=== PATIENT | female | born 1940 | race Caucasian/White ===

== ENCOUNTER 2021-08-21 01:55 | Inpatient (IN) ==
[2021-08-21] MEDS ORDERED: FUROSEMIDE 40 MG/4 ML VIAL IV STA (02:15)
[2021-08-21] MEDS ORDERED: NITROGLYCERIN SL 0.4 MG/TAB TAB SL STA (02:15)
--- NOTE | 2021-08-21 02:42 | Emergency Department Note ---
History of Present Illness General Chief Complaint: Shortness of Breath/Dyspnea Stated Complaint: SHORT OF BREATH/PRODUCTIVE COUGH Time Seen by Provider: 08/21/21 01:57 Source: patient and RN notes reviewed Mode of arrival: EMS Limitations: no limitations History of Present Illness Provider Complaint: shortness of breath (All of a sudden while at work tonight.) Onset (ago): hour(s) (1) Severity: severe Consistency/Duration: + constant Relieved By: + nothing Context: + recent illness (Cough recently, neg COVID test) Known history of: other (None) Associated symptoms: + cough (Productive of blood tinged sputum); no chest pain or no fever Treatment prior to arrival: bronchodilator HPI Narrative: goes to work at 10 pm for [employer] Sudden onset increased WOB, cough Blood tinged frothy no chest pain or fever no vomiting, diarrhea. Unsure of h/o murmur, no previous CHF. non smoker. Recent negative COVID swab. Related Data Home oxygen amount: none Home Medications Medication Instructions Recorded Confirmed Type furosemide 40 mg tablet 40 mg PO DAILY PRN 08/21/21 08/21/21 History multivitamin 1 tab PO DAILY 08/21/21 08/21/21 History tramadol 50 mg tablet 50 mg PO DIRECTED PRN 08/21/21 08/21/21 History Allergies Allergy/AdvReac Type Severity Reaction Status Date / Time No Known Allergies Allergy Verified 08/21/21 02:16 Past Med/Surg History Medical History (Updated 08/21/21 @ 04:26 by Samantha Hardy MD) Patient denies medical problems Social History (Updated 08/21/21 @ 04:07 by Samantha Hardy MD) Smoking Status: Never smoker Preferred Language: Azeri Feels Safe at Home: Yes Review of Systems See HPI for pertinent positives & negatives. and A total of 10 systems reviewed and were otherwise negative Physical Exam Vital Signs: Vital Signs - 24 hr 08/21/21 02:01 08/21/21 02:38 08/21/21 03:00 Temperature 36.9 C Temperature Source Oral Pulse Rate 125 H 116 H Pulse Rate [Apical ] 125 H 109 H Pulse Rate [Recove ry] Pulse Rhythm [Apic al] Regular Pulse Strength [Ap ical] Normal Respiratory Rate 20 30 H 22 Respiratory Rate [ Recovery] Respiratory Effort / Characteristics Non-Labored Non-Labored Sponta neous Respiratory Depth Normal Normal Respiratory Patter n Regular Blood Pressure 157/97 H Blood Pressure [Ri ght Arm] 157/97 H 122/72 Blood Pressure Rose n 117 Blood Pressure Rose n [Right Arm] 117 88 Blood Pressure Pos ition [Right Arm] Sitting Pulse Oximetry 91 94 94 Pulse Oximetry [Re covery] Oxygen Delivery Me thod Nasal Cannula Nasal Cannula Nasal Cannula Oxygen Flow Rate 4 4 4 Sepsis Recent Feve r Within 48 Hours No Sepsis New/Unexpla ined Change in Men juan luis Status N/A Sepsis Action Take n by Nursing No Action Required Oxygen Flow Rate - Titration 4 Pulse Oximetry Pos t Tiitration 91 08/21/21 03:38 08/21/21 03:39 Temperature Temperature Source Pulse Rate Pulse Rate [Apical ] Pulse Rate [Recove ry] 129 H Pulse Rhythm [Apic al] Pulse Strength [Ap ical] Respiratory Rate 24 Respiratory Rate [ Recovery] 27 H Respiratory Effort / Characteristics Non-Labored Sponta neous Respiratory Depth Normal Respiratory Patter n Blood Pressure Blood Pressure [Ri ght Arm] Blood Pressure Rose n Blood Pressure Rose n [Right Arm] Blood Pressure Pos ition [Right Arm] Pulse Oximetry 97 Pulse Oximetry [Re covery] 86 L Oxygen Delivery Me thod Room Air Nasal Cannula Oxygen Flow Rate 4 Sepsis Recent Feve r Within 48 Hours Sepsis New/Unexpla ined Change in Men juan luis Status Sepsis Action Take n by Nursing Oxygen Flow Rate - Titration Pulse Oximetry Pos t Tiitration Physical Exam: Vital signs reviewed. General: Somewhat ill-appearing 80 yo female, in no significant distress. HEENT: No scleral icterus, PERRLA, neck supple. Atraumatic. Cardiovascular: Systolic ejection murmur, tachycardic, regular rhythm Pulmonary: Increased WOB, rhonchi bilaterally, moist cough. Abdomen: Soft, nontender, nondistended, positive bowel sounds. Musculoskeletal: Atraumatic, no peripheral edema. Neurologic: Patient awake alert and oriented x 3 Skin: Warm, dry, no rash Course Administered Medications Discontinued Medications Aspirin (Aspirin Chew 324 Mg) 324 mg PO NOW STA Stop: 08/21/21 03:15 Last Admin: 08/21/21 03:22 Dose: 324 mg Documented by: [id number] Furosemide (Furosemide 40 Mg/4 Ml Vial) 40 mg IV NOW STA Stop: 08/21/21 02:16 Last Admin: 08/21/21 02:18 Dose: 40 mg Documented by: [id number] Nitroglycerin (Nitroglycerin Sl 0.4 Mg/Tab Tab) 0.4 mg SL NOW STA Stop: 08/21/21 02:16 Last Admin: 08/21/21 02:18 Dose: 0.4 mg Documented by: [id number] Potassium Chloride (Potassium Chloride Crtab 20 Meq Tabcr) 40 meq PO NOW STA Stop: 08/21/21 03:15 Last Admin: 08/21/21 03:22 Dose: 40 meq Documented by: [id number] Medical Decision Making Differential Diagnosis Reactive airway disease, pneumonia, pneumothorax, COPD, CHF, infections, cardiac ischemia, pulmonary embolism, musculoskeletal, gastrointestinal, as well as other pathologies. Medical Records Attestation: I reviewed the patient's medical records. Home Medications Current Medication List: was personally reviewed by me Laboratory Data Attestation: I reviewed the patient's lab results. Result diagrams: 08/21/21 02:40 08/21/21 02:40 Lab Results 08/21/21 08/21/21 08/21/21 Range/Units 02:28 02:40 02:40 WBC 8.85 (4.8-10.8) K/uL RBC 4.39 (4.2-5.4) M/uL Hgb 13.6 (12.0-16.0) g/dL Hct 41.8 (37-47) % MCV 95.2 (80-100) fL MCH 31.0 (25-34) pg MCHC 32.5 (32-36) g/dL RDW Std Deviation 48.2 H (36.4-46.3) fL RDW Coeff of Grace 13.9 (11.5-14.5) % Plt Count 249 (130-400) K/uL MPV 10.2 (7.4-10.4) fL Immature Gran % (Auto) 0.3 % Neut % (Auto) 61.9 % Lymph % (Auto) 24.1 % [place] % (Auto) 10.1 % Eos % (Auto) 3.3 % Baso % (Auto) 0.3 % Neut # (Auto) 5.48 (1.4-6.5) K/uL Lymph # (Auto) 2.13 (1.2-3.4) K/uL [place] # (Auto) 0.89 H (0.11-0.59) K/uL Eos # (Auto) 0.29 (0-0.5) K/uL Baso # (Auto) 0.03 (0-0.2) K/uL Immature Gran # (Auto) 0.03 H (0.00-0.02) K/uL Sodium 143 (136-145) mmol/L Potassium 3.3 L (3.5-5.1) mmol/L Chloride 109 H (98-107) mmol/L Carbon Dioxide 26 (21-32) mmol/L Anion Gap 8 (3-11) BUN 22 (6-23) mg/dl Creatinine 0.75 (0.6-1.2) mg/dl Est Cr Clr Drug Dosing 50.1 ml/min Est GFR ( Amer) 87.9 ml/min Est GFR (Non-Af Amer) 75.8 ml/min BUN/Creatinine Ratio 29.3 H (10-20) Glucose 115 H (70-99(Fasting)) mg/dl Calcium 9.8 (8.5-10.1) mg/dl Magnesium 2.0 (1.7-2.4) mg/dl Total Bilirubin 0.4 (0.2-1.0) mg/dl AST 24 (13-39) U/L ALT 18 (7-52) U/L Alkaline Phosphatase 108 H (34-104) U/L Troponin I 0.19 H* (0-0.04) ng/ml B-Natriuretic Peptide (0-100) pg/ml Total Protein 6.4 (6.0-8.3) gm/dl Albumin 3.8 (3.4-5.0) gm/dl Globulin 2.6 (2.5-4.0) gm/dl Albumin/Globulin Ratio 1.5 (0.9-2) Urine Color Urine Appearance (Clear) Urine pH (4.5-7.5) Ur Specific [place] (1.000-1.030) Urine Protein (Negative) Urine Glucose (UA) (Negative) Urine Ketones (Negative) Urine Blood (Negative) Urine Nitrite (Negative) Urine Bilirubin (Negative) Urine Urobilinogen (Negative) Ur Leukocyte Esterase (Negative) Urine WBC (Auto) (0-5) /hpf Urine RBC (Auto) (0-4) /hpf U Hyaline Cast (Auto) (0-5) /lpf U Epithel Cells (Auto) (0-5) /lpf Urine Bacteria (Auto) (Negative) SARS-CoV-2, RNA, NAAT NEGATIVE (NEGATIVE) 08/21/21 08/21/21 Range/Units 03:25 03:30 WBC (4.8-10.8) K/uL RBC (4.2-5.4) M/uL Hgb (12.0-16.0) g/dL Hct (37-47) % MCV (80-100) fL MCH (25-34) pg MCHC (32-36) g/dL RDW Std Deviation (36.4-46.3) fL RDW Coeff of Grace (11.5-14.5) % Plt Count (130-400) K/uL MPV (7.4-10.4) fL Immature Gran % (Auto) % Neut % (Auto) % Lymph % (Auto) % [place] % (Auto) % Eos % (Auto) % Baso % (Auto) % Neut # (Auto) (1.4-6.5) K/uL Lymph # (Auto) (1.2-3.4) K/uL [place] # (Auto) (0.11-0.59) K/uL Eos # (Auto) (0-0.5) K/uL Baso # (Auto) (0-0.2) K/uL Immature Gran # (Auto) (0.00-0.02) K/uL Sodium (136-145) mmol/L Potassium (3.5-5.1) mmol/L Chloride (98-107) mmol/L Carbon Dioxide (21-32) mmol/L Anion Gap (3-11) BUN (6-23) mg/dl Creatinine (0.6-1.2) mg/dl Est Cr Clr Drug Dosing ml/min Est GFR ( Amer) ml/min Est GFR (Non-Af Amer) ml/min BUN/Creatinine Ratio (10-20) Glucose (70-99(Fasting)) mg/dl Calcium (8.5-10.1) mg/dl Magnesium (1.7-2.4) mg/dl Total Bilirubin (0.2-1.0) mg/dl AST (13-39) U/L ALT (7-52) U/L Alkaline Phosphatase (34-104) U/L Troponin I (0-0.04) ng/ml B-Natriuretic Peptide 175 H (0-100) pg/ml Total Protein (6.0-8.3) gm/dl Albumin (3.4-5.0) gm/dl Globulin (2.5-4.0) gm/dl Albumin/Globulin Ratio (0.9-2) Urine Color Yellow Urine Appearance Clear (Clear) Urine pH 5.0 (4.5-7.5) Ur Specific [place] 1.006 (1.000-1.030) Urine Protein Negative (Negative) Urine Glucose (UA) Negative (Negative) Urine Ketones Negative (Negative) Urine Blood Negative (Negative) Urine Nitrite Negative (Negative) Urine Bilirubin Negative (Negative) Urine Urobilinogen Negative (Negative) Ur Leukocyte Esterase Trace H (Negative) Urine WBC (Auto) 1-5 (0-5) /hpf Urine RBC (Auto) 0-4 (0-4) /hpf U Hyaline Cast (Auto) 1-5 (0-5) /lpf U Epithel Cells (Auto) 0-5 (0-5) /lpf Urine Bacteria (Auto) Negative (Negative) SARS-CoV-2, RNA, NAAT (NEGATIVE) Imaging Data My Impression: CXR to my interpretation reveals pulm vascular congestion. Blood Pressure Blood Pressure Findings: Elevated blood pressure Blood Pressure Disposition: further management by hospitalist MDM Narrative This pt was evaluated and appeared to be in some resp discomfort. IV access was obtained and lab work was drawn. EKG reveals a sinus tachycardia without evidence of acute ischemic change. Chest x-ray reveals evidence of congestive heart failure. Laboratory work is consistent with a mildly elevated troponin at 0.19. Patient was medicated with 40 mg of IV Lasix and 325 mg of oral aspirin. She did have significant relief of her discomfort. Patient did remain slightly tachycardic, but much improved. I suspect she is having an acute exacerbation of congestive heart failure. Patient was informed of the findings. She has swabbed Covid negative. Dr. Willis of the hospitalist service has been consulted for further management. Patient is aware of the change and agrees. Impression & Plan Congestive heart failure, Systolic ejection murmur, Elevated troponin Discharge Plan Visit Data Chief Complaint: Shortness of Breath/Dyspnea Stated Complaint: SHORT OF BREATH/PRODUCTIVE COUGH ED Provider: Samantha Hardy Discharge Problem: Congestive heart failure, Systolic ejection murmur, Elevated troponin Forms Stand Alone Forms: [facility] [employer] Prescriptions Prescriptions: No Action multivitamin Tablet 1 tab PO DAILY RF: 0 furosemide 40 mg tablet 40 mg PO DAILY PRN (Reason: Edema) RF: 0 tramadol 50 mg Tablet 50 mg PO DIRECTED PRN (Reason: Pain) RF: 0 Referrals Referrals: PCP,NO [Primary Care Provider] - Discharge Problem: Congestive heart failure Qualifiers: Heart failure type: unspecified Heart failure chronicity: acute Qualified Code(s): I50.9 - Heart failure, unspecified
[2021-08-21 02:48] LABS: Basophils # (auto) 0.03 K/uL (0-0.2); Basophils % (auto) 0.3 %; Eosinophils # (auto) 0.29 K/uL (0-0.5); Eosinophils % (auto) 3.3 %; Hematocrit (blood only) 41.8 % (37-47); Hemoglobin 13.6 g/dL (12.0-16.0); Immature Granulocytes # (auto) 0.03 K/uL (0.00-0.02); Immature Granulocytes % (auto) 0.3 %; Lymphocytes # (auto) 2.13 K/uL (1.2-3.4); Lymphocytes % (auto) 24.1 %; Mean Corpuscular Hgb Conc 32.5 g/dL (32-36); Mean Corpuscular Volume 95.2 fL (80-100); Mean Platelet Volume 10.2 fL (7.4-10.4); Monocytes # (auto) 0.89 K/uL (0.11-0.59); Monocytes % (auto) 10.1 %; Neutrophils # (auto) 5.48 K/uL (1.4-6.5); Neutrophils % (auto) 61.9 %; Platelet Count 249 K/uL (130-400); RDW Coefficient of Variation 13.9 % (11.5-14.5); RDW Standard Deviation 48.2 fL (36.4-46.3); Red Blood Count 4.39 M/uL (4.2-5.4); White Blood Count 8.85 K/uL (4.8-10.8)
[2021-08-21 03:12] LABS: Albumin Globulin Ratio 1.5 (0.9-2); Albumin Level 3.8 gm/dl (3.4-5.0); BUN Creatinine Ratio 29.3 (10-20); Bilirubin,Total 0.4 mg/dl (0.2-1.0); Calcium 9.8 mg/dl (8.5-10.1); Creatinine Clr Calc Pharmacy 50.1 ml/min; Est GFR (African American) 87.9 ml/min; Est GFR (Non-African American) 75.8 ml/min; Globulin 2.6 gm/dl (2.5-4.0); Potassium 3.3 mmol/L (3.5-5.1); Total Protein 6.4 gm/dl (6.0-8.3)
[2021-08-21 03:13] LABS: Troponin I 0.19 ng/ml (0-0.04)
[2021-08-21] MEDS ORDERED: POTASSIUM CHLORIDE CRTAB 20 MEQ TABCR PO STA (03:14)
[2021-08-21] MEDS ORDERED: ASPIRIN CHEW 324 MG PO STA (03:14)
[2021-08-21 03:55] LABS: Appearance Urine Clear (Clear); Bacteria Urine Automated Negative (Negative); Bilirubin Urine Negative (Negative); Blood Urine Negative (Negative); Color Urine Yellow; Epithelial Cell Urine Auto 0-5 /lpf (0-5); Glucose Urine UA Negative (Negative); Ketones Urine Negative (Negative); Leukocyte Esterase Urine Trace (Negative); Nitrite Urine Negative (Negative); Protein Urine Negative (Negative); RBC Urine Automated 0-4 /hpf (0-4); Specific Gravity Urine 1.006 (1.000-1.030); Urobilinogen Urine Negative (Negative)
--- NOTE | 2021-08-21 04:00 | History & Physical Report ---
Date of Service August 21, 2021 Assessment & Plan (1) Shortness of breath: Plan: 80yo female with a history of back pain and headache (with frequent NSAID use) presents after sudden-onset SOB, cough productive of blood-tinged sputum, and chest tightness. Sudden-onset SOB, hypoxia, cough, minimal hemoptysis Patient with the above symptoms which occurred suddenly while at work Upon EMS evaluation and arrival to the ED, patient noted to be hypertensive, tachycardic (max 130's), tachypneic (max 30), and hypoxia to mid-80's Hypoxia resolved in the field on 4L NC; continue supplemental oxygen to maintain O2 sat >92%, wean as tolerated Afebrile, no leukocytosis, no anemia D-dimer elevated to 1110 Stat CTA chest w/ PE protocol pending Heparin gtt NSTEMI Troponin on admission 0.19, likely represents demand ischemia secondary to hypoxemia EKG: sinus tachycardia without ischemic change; if chest pain, repeat EKG Trend troponin q6h until downtrending Echo as above Lipid profile, A1c ordered Systolic ejection murmur Unclear if this has been previously-diagnosed Echo ordered Caution with additional diuresis - murmur suspicious for which would be pre-load dependent History of fluid overload Patient takes lasix about once weekly for "fluid overload" - unclear if patient has been diagnosed with CHF in the past BNP mildly elevated (to 175) on admission CXR with some pulmonary edema and trace pleural effusions Patient likely has some degree of systolic and/or diastolic failure; will obtain echo as above Caution with diuresis as above Hypokalemia Potassium 3.3 on admission; KCl PO 20mEq bid ordered Trend BMP, replete as needed FEN: heart healthy diet Code status: DNR/DNI per my discussion with patient on admission DVT ppx: heparin gtt Held home meds: lasix Dispo: PCU telemetry for close hemodynamic monitoring (2) Elevated troponin: (3) Systolic ejection murmur: (4) Congestive heart failure: Plan: 80yo female with a history of back pain and headache (with frequent NSAID use) presents after sudden-onset SOB, cough productive of blood-tinged sputum, and chest tightness. Sudden-onset SOB, hypoxia, cough, minimal hemoptysis Patient with the above symptoms which occurred suddenly while at work Upon EMS evaluation and arrival to the ED, patient noted to be hypertensive, tachycardic (max 130's), tachypneic (max 30), and hypoxia to mid-80's Hypoxia resolved in the field on 4L NC; continue supplemental oxygen to maintain O2 sat >92%, wean as tolerated Afebrile, no leukocytosis, no anemia D-dimer elevated to 1110 Stat CTA chest w/ PE protocol pending Heparin gtt NSTEMI Troponin on admission 0.19, likely represents demand ischemia secondary to hypoxemia EKG: sinus tachycardia without ischemic change Trend troponin q6h until downtrending EKG with CP Lipid profile, A1c ordered Systolic ejection murmur Unclear if this has been previously-diagnosed Echo ordered Caution with additional diuresis - murmur suspicious for which would be pre-load dependent Hypokalemia Potassium 3.3 on admission; KCl PO 20mEq bid ordered Trend BMP, replete as needed FEN: heart healthy diet Code status: DNR/DNI per my discussion with patient on admission DVT ppx: heparin gtt Held home meds: lasix Dispo: PCU telemetry for close hemodynamic monitoring History of Present Illness Primary Care Provider: Dr. Emilee Washington ([facility]) 80yo female with a history of headache and back pain presents with sudden-onset SOB, cough productive of blood-tinged sputum, and chest tightness. 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 Patient waited 10- 15 minutes for symptoms to resolve, but when her symptoms started to gradually worsened, she called a family friend (who is a physician) who recommended calling 911. Patient notes about 40 minutes elapsed between symptom onset and EMS arrival. Patient notes her symptoms continued to worsen until EMS gave her a nebulizer and supplemental oxygen. Upon EMS evaluation, patient was tachycardic, tachypneic, and hypoxic in the 80s, which improved on 4L NC. Upon arrival to the ED, patient was hypoxic to 87, tachycardic to 125, and was afebrile. Respiratory rate on arrival is listed as 20 but patient has had tachypnea reaching a RR of 30 intermittently while here. Patient denies experiencing similar symptoms before. Does endorse a lifetime history of easy bruising, though she denies a history of uncontrolled nosebleeds, hematochezia, or melena. Also endorses a history of headache and frequent NSAID use ("I always have a headache, it is constant every day, I take a lot of excedrin and aleve, usually multiple times a day"). Patient denies fever, chills, fatigue, congestion, sore throat, chest pain, palpitations, abdominal pain, nausea, vomiting, constipation, diarrhea, pain with urination, change in urinary frequency, hematuria, new numbness, tingling, weakness, night sweats, rash, bone pain, or unintentional weight loss. Patient is a never- smoker. Patient denies recent travel, recent immobility, or history of TB. Patient denies a known family history of DVT/PE, hemoptysis, aneurysms, uncontrolled nosebleeds, or GI bleed. Other than OTC headache medicine, patient's home meds are limited to tramadol and lasix; tramadol as needed for back pain (s/p back surgery five years ago), and lasix as needed for "fluid retention" though she denies having been diagnosed with CHF; patient reports she only takes lasix about once a week. Patient is unaware if she's been diagnosed with a heart murmur in the past. 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 Required: No marital status: Feels Safe at Home: Yes Safety Concerns: Feels Safe At This Time Assistive Devices: None Review of Systems Review of Systems: See HPI Physical Exam Physical Exam: Constitutional: well-appearing, no acute distress HEENT: NCAT, no blood appreciated in nares or oropharynx, MMM, no oropharyngeal ulcers or telangiectasias CV: tachycardic, regular rhythm, grade 5/6 systolic ejection murmur appreciated, extremities well-perfused, no LE edema Resp: CTABL, no wheezes/rales/rhonchi appreciated, no increased work of breathing GI: soft, nondistended, nontender, BS normoactive MSK: no gross deformities appreciated Skin: warm, dry, no rash appreciated Neuro: alert, oriented, no focal neurologic deficit appreciated Results & Data Results & Data ([facility]) Vital Signs (Past 12 Hours) Vital Signs Temp Pulse Pulse Pulse Resp Resp BP 08/21/21 03:39 24 08/21/21 03:38 129 H 27 H 08/21/21 03:00 109 H 22 08/21/21 02:38 116 H 30 H 08/21/21 02:01 36.9 C 125 H 125 H 20 157/97 H BP Pulse Ox Pulse Ox 08/21/21 03:39 97 08/21/21 03:38 86 L 08/21/21 03:00 122/72 94 08/21/21 02:38 94 08/21/21 02:01 157/97 H 91 Supervising Physician Co-Signing Physician Notes Attending addendum: I have physically seen this patient, have supervised the medical residents activities, and agree with the H&P unless as otherwise noted. Assessment and Plan: NSTEMI/systolic heart murmur/elevated troponin- The patient will be admitted to telemetry for serial cardiac enzymes, serial EKG's, cardiac rhythm monitoring and a 2-D echocardiogram with Dopplers. Troponin 0.19 upon admission, with differential including type II VT plus minus associated with possible PE versus primary cardiac event Check a vascular panel hemoglobin A1c D-dimer elevated. Stat CTA chest PE protocol ordered Heparin drip as noted Consult cardiology Remaining orders and notations as noted Resident Activity Tracking Resident Involvement: Resident Care Provided and Learning Coordinator Coverage Note Care Provided: Adult Hospital Medicine (1) Congestive heart failure Heart failure chronicity: acute Heart failure type: unspecified Qualified Code(s): I50.9 - Heart failure, unspecified
[2021-08-21 06:02] LABS: D Dimer 1110 ug/L FEU (0-500)
[2021-08-21] MEDS ORDERED: Heparin IV Adult Wt-Based Standard WITH Bolus Protocol IV SCH (06:23)
[2021-08-21] MEDS ORDERED: OPTIRAY 320 125ml IV ONE (06:28)
[2021-08-21] MEDS ORDERED: HEPARIN SOD (PORCINE) 1000 UNIT/ML IV ONE (06:33)
[2021-08-21] MEDS ORDERED: HEPARIN SODIUM/DEXTROSE 25,000 UNITS/500 ML BAG IV SCH (06:45)
--- NOTE | 2021-08-21 06:47 | XRay Report ---
XR chest 1V portable HISTORY: 80 years-old Female Dyspnea acute shortness of breath COMPARISON: CTA chest of same day TECHNIQUE: Portable AP view of the chest FINDINGS: Cardiac silhouette is enlarged. Calcified plaque of the thoracic aorta. Pulmonary vascular congestion with interstitial coarsening and ill-defined bilateral airspace opacities. Trace pleural effusions. Cholecystectomy. Degenerative changes of the shoulders and spine. IMPRESSION: 1. Cardiomegaly with pulmonary edema. 2. Trace pleural effusions with bibasilar prominent opacities suggestive of atelectasis. ACT 112: Negative or not required by law. The above report was generated using voice recognition software. It may contain grammatical, syntax o r spelling errors. Electronically signed by: Octavio Sweeney M.D. 08/21/2021 6:46 AM
--- NOTE | 2021-08-21 07:36 | CT Scan Report ---
CT ANGIOGRAM OF THE CHEST CLINICAL HISTORY: Cough and dyspnea. Wheezing. COMPARISON STUDY: Chest x-ray dated 08/21/2021. TECHNIQUE: Following the IV administration of 121 cc of Optiray 320, CT angiogram of the chest was pe rformed from the upper abdomen to the thoracic inlet utilizing the pulmonary embolus protocol. Images are reviewed in the axial, sagittal, and coronal planes. 3-D MIPS images are created and assessed. I V contrast was administered without complication. A dose lowering technique was utilized adhering to the principles of ALARA. CT DOSE: 291.38 mGy.cm FINDINGS: Thyroid: Imaged portions of the thyroid gland are normal in size and attenuation. Thoracic aorta: There is atherosclerotic calcification of the thoracic aorta, which is normal in sadie dotty and demonstrates standard 3-vessel arch anatomy. The thoracic aorta is not well opacified. Pulmonary vasculature: The pulmonary trunk is dilated, measuring 3.7 cm in diameter. There are no aden ling defects identified in main, lobar, or segmental pulmonary branches to suggest pulmonary embolus. Heart: The heart is enlarged and without pericardial effusion. Lungs and pleural spaces: There are small pleural effusions. There is diffuse intralobular septal thi ckening. Groundglass change is noted throughout both lungs. The trachea and central airways are clear . Mediastinum: There is no mediastinal lymphadenopathy. Marika: Mildly enlarged hilar nodes measure up to 13 mm in short axis. Axillae: There is no axillary lymphadenopathy. Upper abdomen: Partially visualized upper abdominal viscera is within normal limits. Skeletal structures: The skeletal structures are osteopenic. Degenerative changes noted in the thorac ic spine. Arthritic change is seen in the shoulders. No lytic or blastic bony lesions are seen. IMPRESSION: 1. There is no evidence of pulmonary embolus in the main, lobar, or segmental pulmonary arteries. 2. Cardiomegaly with evidence of pulmonary artery hypertension and congestive failure. 3. Diffuse groundglass change likely represents pulmonary edema. Correlate clinically for evidence of a superimposed infectious/inflammatory pneumonitis. 4. Small pleural effusions. 5. Mildly enlarged hilar lymph nodes are nonspecific and likely reactive. ACT 112: Negative or not required by law. Electronically signed by: Azar Resendiz M.D. 08/21/2021 7:35 AM
[2021-08-21] MEDS ORDERED: ONDANSETRON INJ 2 MG/ML 2 ML VIAL IV PRN (07:41)
[2021-08-21] MEDS ORDERED: POLYETHYLENE (MIRALAX) 17 GM PACK PO PRN (07:41)
[2021-08-21] MEDS ORDERED: NITROGLYCERIN SL 0.4 MG/TAB TAB SL PRN (07:41)
[2021-08-21] MEDS: traMADol HCL 50 MG TABLET PO PRN ×2 (09:05→20:05)
[2021-08-21] MEDS: POTASSIUM CHLORIDE CRTAB 20 MEQ TABCR PO SCH ×2 (09:05→20:29)
[2021-08-21] MEDS: ASPIRIN 81 MG ECTAB PO SCH (09:05)
--- NOTE | 2021-08-21 10:39 | XCELERA ---
[id number]
--- NOTE | 2021-08-21 11:41 | Cardiology Consultation ---
Date of Consultation August 21, 2021 Assessment & Plan (1) Congestive heart failure: (2) Mitral regurgitation: (3) Elevated troponin: 1. Congestive heart failure: Based on symptoms her heart failure was of acute onset. There are at least 2 possibilities for this, one is that it is due to myocardial ischemia and the rising troponin would suggest that, another possibility is acute mitral regurgitation and she does have leaflet prolapse however this is only graded as mild to moderate so that is probably less likely. She may have diastolic heart failure and is on Lasix, but typically that would not present with sudden onset although perhaps the symptoms were sudden onset but not the failure. She does describe a cough for several weeks so this is a possibility. 2. Mitral regurgitation: She has mild to moderate mitral regurgitation due to prolapsed posterior leaflet. Although sudden onset of mitral regurgitation could cause acute congestive heart failure this seems less likely than myocardial ischemia. Her electrocardiogram does not show ischemic changes however. 3. Elevated troponin: She had a slightly elevated troponin on presentation and that has risen with her second measurement. This is worrisome and may represent ongoing myocardial injury although demand ischemia remains a possibility. 4. Coronary disease: I suspect she does have coronary disease based on her enzyme elevation and significant aortic calcification, to my knowledge she has not had evaluation for coronary disease in the past. Options include continuing to trend troponins and consider stress testing at a later date, versus catheterization to make the diagnosis. This would allow us to intervene early if she does have significant disease. I would favor this approach and I will review with Dr. Garcia. The patient is agreeable. 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 She was working when the symptoms started suddenly, on arrival to emergency room she was noted to be hypertensive and tachycardic as well as tachypneic and hypoxic. Initial evaluation showed a troponin of 0.19, her electrocardiogram on presentation shows sinus tachycardia at 123 bpm with no significant ST deviation, and her echocardiogram showed a hyperdynamic left ventricle with posterior leaflet prolapse and eccentric mitral regurgitation which is felt to be mild to moderate. Left atrial size is normal. I did repeat her electrocardiogram at the time of my evaluation in the emergency room and it was essentially unchanged other than being at a more controlled heart rate. I did discuss her symptoms with her and it sounds as though she had a bit of a prodrome in that she was having a cough for several weeks which she had called in about but was told to take [id number] medications. She has not been using her diuretic because she uses that for leg and arm swelling which she has not been having. 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 When specifically asked about chest discomfort she does describe a pressure sensation which she had since last evening and it continues at this time. She did not have lightheadedness or dizziness. She did note that her heart was beating very rapidly and was uncomfortable when she first noticed the shortness of breath Allergies Allergy/AdvReac Type Severity Reaction Status Date / Time No Known Allergies Allergy Verified 08/21/21 02:16 Home Medications Medication Instructions Recorded Confirmed Type furosemide 40 mg tablet 40 mg PO DAILY PRN 08/21/21 08/21/21 History multivitamin 1 tab PO DAILY 08/21/21 08/21/21 History tramadol 50 mg tablet 50 mg PO DIRECTED PRN 08/21/21 08/21/21 History Patient History Medical History Patient denies medical problems Social History Smoking Status: Unknown if ever smoked Preferred Language: Portuguese Communication Ability: Effective Eyelet Riveter Required: No marital status: Feels Safe at Home: Yes Safety Concerns: Feels Safe At This Time Assistive Devices: None Review of Systems Review of Systems: All systems reviewed & are unremarkable except as noted in HPI & below She does have some difficulty walking due to 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 She does not feel she could walk on a treadmill. Physical Exam Physical Exam: Constitutional: Alert, cooperative and in no distress. HEENT: Unremarkable Neck: No jugular venous distention, carotid pulses are normal and equal bilaterally without bruits. Pulmonary: Basilar crackles on auscultation bilaterally. Cardiac: Regular rhythm with a grade 2/6 holosystolic murmur at the apex, no gallop or rub. Abdomen: Soft, nontender with normal bowel sounds. Extremities: No edema. Distal pulses intact. Neurologic: No focal findings. Gait was not tested. Skin: No rash, ecchymoses or petechiae. Results & Data ([facility]) Vital Signs (Past 12 Hours) Vital Signs Temp Pulse Pulse Pulse Resp Resp BP 08/21/21 08:49 104 H 24 08/21/21 06:00 104 H 20 08/21/21 05:09 105 H 20 08/21/21 03:39 24 08/21/21 03:38 129 H 27 H 08/21/21 03:00 109 H 22 08/21/21 02:38 116 H 30 H 08/21/21 02:01 36.9 C 125 H 125 H 20 157/97 H BP Pulse Ox Pulse Ox 08/21/21 08:49 122/81 99 08/21/21 06:00 126/74 95 08/21/21 05:09 111/70 97 08/21/21 03:39 97 08/21/21 03:38 86 L 08/21/21 03:00 122/72 94 08/21/21 02:38 94 08/21/21 02:01 157/97 H 91 Laboratory Results Cardiac Enzymes 08/21/21 08/21/21 08/21/21 Range/Units 02:40 03:25 08:48 AST 24 (13-39) U/L Troponin I 0.19 H* 0.48 H* (0-0.04) ng/ml B-Natriuretic Peptide 175 H (0-100) pg/ml Coagulation 08/21/21 Range/Units 03:25 B-Natriuretic Peptide 175 H (0-100) pg/ml Lipids 08/21/21 Range/Units 02:40 Triglycerides 129 (0-150) mg/dl Cholesterol 196 (0-200) mg/dl HDL Cholesterol 49 mg/dl Cholesterol/HDL Ratio 4.0 (0-5) CBC 08/21/21 Range/Units 02:40 WBC 8.85 (4.8-10.8) K/uL RBC 4.39 (4.2-5.4) M/uL Hgb 13.6 (12.0-16.0) g/dL Hct 41.8 (37-47) % Plt Count 249 (130-400) K/uL Neut # (Auto) 5.48 (1.4-6.5) K/uL Lymph # (Auto) 2.13 (1.2-3.4) K/uL [place] # (Auto) 0.89 H (0.11-0.59) K/uL Eos # (Auto) 0.29 (0-0.5) K/uL Baso # (Auto) 0.03 (0-0.2) K/uL Comprehensive Metabolic Panel 08/21/21 Range/Units 02:40 Sodium 143 (136-145) mmol/L Potassium 3.3 L (3.5-5.1) mmol/L Chloride 109 H (98-107) mmol/L Carbon Dioxide 26 (21-32) mmol/L BUN 22 (6-23) mg/dl Creatinine 0.75 (0.6-1.2) mg/dl Glucose 115 H (70-99(Fasting)) mg/dl Calcium 9.8 (8.5-10.1) mg/dl AST 24 (13-39) U/L ALT 18 (7-52) U/L Alkaline Phosphatase 108 H (34-104) U/L Total Protein 6.4 (6.0-8.3) gm/dl Albumin 3.8 (3.4-5.0) gm/dl Intake and Output 08/20/21 08/21/21 08/21/21 22:59 06:59 14:59 Other: Weight 72.5 kg Diagnostic Findings I did review her chest x-ray and this appears to represent congestive heart failure. She also has aortic calcification which is obvious on chest x-ray. A CT angiogram was done which was negative for pulmonary emboli and also suggested pulmonary edema. PG Care Time/CCT Total # of Minutes Spent Total Time Spent with Patient: Total time spent is greater than 50% in coordination of care (as documented) at patient's floor/unit and/or counseling patient: Coding Level of Care Code 00301 Office/OBS Consult Lvl 5 Diagnoses Congestive heart failure I50.9 Heart failure chronicity: acute Heart failure type: unspecified Mitral regurgitation I34.0 Elevated troponin R77.8 (1) Congestive heart failure Heart failure chronicity: acute Heart failure type: unspecified Qualified Co de(s): I50.9 - Heart failure, unspecified
[2021-08-21] MEDS: FUROSEMIDE INJ 20 MG/2 ML VIAL IV SCH ×2 (12:30→20:29)
--- NOTE | 2021-08-21 12:53 | Medical Student Progress Note ---
Date of Service August 21, 2021 Assessment & Plan (1) Congestive heart failure: Plan: This 80-year-old woman with a history of back pain s/p surgery, headache, and skin cancer s/p surgery (2019) presented with sudden-onset dyspnea, chest tightness, hemoptysis, and palpitations with new systolic ejection murmur and TTE showing mitral valve prolapse. Sudden-onset dyspnea, chest tightness, hemoptysis, and palpitations: - Differential diagnosis includes cardiac causes (acute decompensated heart failure, acute mitral regurgitation, ACS) and pulmonary cause (pulmonary embolism, infectious) - Cardiac cause most likely * Acute decompensated heart failure * To patient's knowledge, she has no underlying existing heart failure. Acute onset possibly due to NSTEMI vs. sudden onset mitral regurgitation due to valve prolapse. * CTA chest demonstrates evidence of pulmonary artery hypertension and pulmonary edema without evidence of pulmonary embolism. * TTE shows LV * Mildly elevated BNP of 175. * Acute mitral valve regurgitation is a possibility, perhaps due to chordae tendinae rupture. * TTE shows mitral regurgitation due to prolapsed posterior leaflet, RV systolic pressure elevated at 30-40 mmHg, EF of 65-70%, and hyperdynamic LV without wall motion abnormalities * Acute coronary syndrome is being considered due to symptoms and upgoing troponins. * Cardiac cath will evaluate for coronary disease. - Pulmonary cause less likely * Pulmonary embolism was considered due to symptoms and elevated D-dimer of 1110 but ultimately ruled out because of CTA chest findings. * Infectious etiology is unlikely due to lack of systemic symptoms such as fever and chills, undetectable CRP. - Management: * Lasix 40 mg BID * Supplemental oxygen * Morphine PRN * Nitrates PRN Mitral regurgitation: - New onset - Per TTE, mild to moderate mitral regurgitation with prolapsed posterior leaflet, hyperdynamic LV. - Presuming acute etiology (given acute symptomatic presentation), the most likely explanation would be a rupture of chordae tendinae causing leaflet prolapse. However, it is also plausible mitral valve prolapse is [id number] in nature. - Management: * Cardiology consult; appreciate recommendations Elevated troponin: - 0.19 at presentation, 0.48 most recently - May indicate ongoing myocardial injury vs. demand ischemia. - Alongside aortic calcification evident on CTA chest, troponin elevation suggests underlying coronary disease. - Per cardiac consult, patient's neuropathy prohibits treadmill stress testing, will therefore pursue cath. - Management: * Trend troponins * Heparin drip * Cardiac catheterization Hypokalemia: - 3.3 at presentation - Electrolytes repleted - Management: * Trend BMP FEN: Heart-healthy diet Code status: DNR/DNI per discussion with patient on admission DVT ppx: Heparin gtt Dispo: PCU telemetry for close hemodynamic monitoring Heart failure chronicity: acute Heart failure type: unspecified Qualified Code(s): I50.9 - Heart failure, unspecified (2) Mitral regurgitation: (3) Elevated troponin: Admission and Anticipated Discharge Date Admission Date: August 21, 2021 Supervising Attestation I personally examined the patient and verified all del rosario points of history and exam, discussed case, and agree with decision making with Stan Colon MS2 feeling ok post cath. just wants a drink of water. d/w cardiology - input greatly appreciated vitals noted nad breathing unlabored on 2L O2 no focal neuro deficits acute diastolic CHF - hx most c/w acute valvular dysfunction. diurese, supportive care. JANEEN tomorrow. otherwise as above Subjective Patient reports no chest pain or shortness of breath. No fevers, chills. Feeling well now. Is accompanied by son Tian. Review of Systems Constitutional: as per Subjective / HPI Physical Exam Physical Exam: Constitutional: well-appearing, no acute distress CV: tachycardic, regular rhythm, grade 3/6 systolic ejection murmur best appreciated at L lower sternal border, extremities well-perfused, trace LE edema, no JVD Resp: no increased work of breathing, faint L basilar crackles, o/w CTAB GI: nondistended, BS normoactive, soft, RUQ tender to palpation (6/10 pain) MSK: no gross deformities appreciated Skin: warm, dry, no rash appreciated Neuro: alert, oriented, grossly moves all extremities Results & Data ([facility]) Vital Signs (Past 12 Hours) Vital Signs Temp Pulse Pulse Pulse Resp Resp BP 08/21/21 08:49 104 H 24 08/21/21 06:00 104 H 20 08/21/21 05:09 105 H 20 08/21/21 03:39 24 08/21/21 03:38 129 H 27 H 08/21/21 03:00 109 H 22 08/21/21 02:38 116 H 30 H 08/21/21 02:01 36.9 C 125 H 125 H 20 157/97 H BP Pulse Ox Pulse Ox 08/21/21 08:49 122/81 99 08/21/21 06:00 126/74 95 08/21/21 05:09 111/70 97 08/21/21 03:39 97 08/21/21 03:38 86 L 08/21/21 03:00 122/72 94 08/21/21 02:38 94 08/21/21 02:01 157/97 H 91
--- NOTE | 2021-08-21 14:11 | Electrocardiogram Report ---
Test Reason : Blood Pressure : / mmHG Vent. Rate : 123 BPM Atrial Rate : 123 BPM P-R Int : 148 ms QRS Dur : 086 ms QT Int : 324 ms P-R-T Axes : 051 -10 009 degrees QTc Int : 463 ms Poor data quality, interpretation may be adversely affected Sinus tachycardia with Premature atrial complexes Inferior infarct , age undetermined Abnormal ECG No previous ECGs available Confirmed by Jignesh Wilson ([id number]) on 08/21/2021 2:11:03 PM Referred By: REFERRED SELF Confirmed By:Jignesh Wilson
[2021-08-21] MEDS ORDERED: MIDAZOLAM HCL 1 MG/ML 2ML VIAL ONE (15:18)
[2021-08-21] MEDS ORDERED: HEPARIN (PORCINE) 1000 UNIT/ML 10 ML (CATH LAB USE ONLY) ONE (15:18)
[2021-08-21] MEDS ORDERED: fentaNYL citrate 100 MCG/2 ML VIAL ONE (15:18)
[2021-08-21] MEDS ORDERED: niCARdipine HCL INJ 2.5 MG/ML 10 ML AMP ONE (15:18)
[2021-08-21] MEDS ORDERED: NITROGLYCERIN/D5W 100MCG/ML 20ML SYR ONE (15:19)
[2021-08-21] MEDS ORDERED: LIDOCAINE 1% LOCAL 20 ML VIAL ONE ×2 (15:20→15:40)
[2021-08-21 15:37] LABS: Partial Thromboplastin Ratio 2.7
[2021-08-21 15:47] LABS: Partial Thromboplastin Time 71.2 Seconds (21.0-31.0)
--- NOTE | 2021-08-21 15:55 | Pre Anesthesia Assessment ---
Date of Service August 21, 2021 Pre Sedation Assessment Vital Signs Temp Pulse Pulse Pulse Resp Resp BP 08/21/21 15:28 95 H 08/21/21 08:49 104 H 24 08/21/21 06:00 104 H 20 08/21/21 05:09 105 H 20 08/21/21 03:39 24 08/21/21 03:38 129 H 27 H 08/21/21 03:00 109 H 22 08/21/21 02:38 116 H 30 H 08/21/21 02:01 98.4 F 125 H 125 H 20 157/97 H BP Pulse Ox Pulse Ox 08/21/21 15:28 121/54 L 96 08/21/21 08:49 122/81 99 08/21/21 06:00 126/74 95 08/21/21 05:09 111/70 97 08/21/21 03:39 97 08/21/21 03:38 86 L 08/21/21 03:00 122/72 94 08/21/21 02:38 94 08/21/21 02:01 157/97 H 91 Cardiovascular RRR, no murmur, no edema Respiratory normal respiratory effort, lungs clear to auscultation Pre-Sedation Airway Assessment Smoking Status: Unknown if ever smoked Hx Sleep Apnea: No Hx Difficult Intubation: No Short, Thick Neck: No Thyromental Distance: > or= 3.5 Finger Breadths Oral Cavity: + Dentures Mallampati Class: III ASA: ASA3 NPO Status Date of Last Intake of Fluids: 08/21/21 Time of Last Intake of Fluids: 09:00 Date of Last Intake of Solid Food: 08/21/21 Time of Last Intake of Solid Foods: 09:00 Procedure Planning Contraindications for Sedation: none Current Medications Reviewed: Yes Notes The planned sedation has been discussed with the patient. Informed Consent was obtained. I have identified the patient, determined the appropriateness of sedation and have assessed the patient immediately prior to the procedure. All medicine(s) and interventions are by my order.
--- NOTE | 2021-08-21 20:52 | Post Anesthesia Assessment ---
Date of Service August 21, 2021 Post Sedation Assessment Vital Signs Temp Pulse Pulse Pulse Resp Resp BP 08/21/21 20:30 97 H 25 H 124/68 08/21/21 20:15 102 H 19 112/68 08/21/21 20:00 98 H 22 119/90 08/21/21 19:48 97 H 21 128/65 08/21/21 19:31 96 H 16 143/83 H 08/21/21 19:15 107 H 26 H 116/89 08/21/21 19:00 97 H 26 H 120/79 08/21/21 18:45 107 H 24 127/85 08/21/21 18:30 108 H 23 133/78 08/21/21 18:15 99 H 26 H 08/21/21 18:00 98 H 33 H 126/58 L 08/21/21 17:45 98 H 21 130/74 08/21/21 17:39 99 H 19 115/69 08/21/21 17:37 99 H 28 H 114/88 08/21/21 17:36 08/21/21 15:28 95 H 08/21/21 08:49 104 H 24 08/21/21 06:00 104 H 20 08/21/21 05:09 105 H 20 08/21/21 03:39 24 08/21/21 03:38 129 H 27 H 08/21/21 03:00 109 H 22 08/21/21 02:38 116 H 30 H 08/21/21 02:01 98.4 F 125 H 125 H 20 157/97 H BP Pulse Ox Pulse Ox 08/21/21 20:30 94 08/21/21 20:15 94 08/21/21 20:00 93 08/21/21 19:48 95 08/21/21 19:31 94 08/21/21 19:15 93 08/21/21 19:00 94 08/21/21 18:45 91 08/21/21 18:30 93 08/21/21 18:15 93 08/21/21 18:00 97 08/21/21 17:45 90 08/21/21 17:39 90 08/21/21 17:37 88 L 08/21/21 17:36 86 L 08/21/21 15:28 121/54 L 96 08/21/21 08:49 122/81 99 08/21/21 06:00 126/74 95 08/21/21 05:09 111/70 97 08/21/21 03:39 97 08/21/21 03:38 86 L 08/21/21 03:00 122/72 94 08/21/21 02:38 94 08/21/21 02:01 157/97 H 91 Recovery Score Activity: Moves 4 extremities Respiration: Deep Breath/Cough Circulation: +/-20% PreAnes Value Consciousness: Fully Awake Oxygen Saturation: O2 needed for >90% Discharge Sedation Level of Care: Fast Track Phase II Post Sedation Plan On clinical assessment, the patient appears to have tolerated the sedation witho ut complications. Patient is recovering as anticipated. Patient will continue to be monitored by nursing and may be discharged when sedation discharge criteria are met per below protocol. Upon Completions of procedure up to 15 minutes continue every 5 minute vital signs and the P.A.R. score; then discharge to a Phase I or Fast Track to Phase II per the following guidelines: * Discharge Patient to appropriate Phase II area if PAR is 8 or greater or return to pre- procedure baseline. The post - procedure orders will be as directed. * If PAR score is less than 8 or not return to pre-procedure baseline then patient will follow Phase I monitoring till PAR is reached for Phase II. The Phase I may be done in procedure room or may call to secure a Phase I area. * If naloxone or flumazenil are used for reversal, hold in Phase I for continued monitoring from when last reversal dose was given for a minimum of 60 minutes or longer pending the nurse and/or physician discretion of patient condition before discharge to Phase II. Please call the Sedation Physician to re-evaluate and complete post-note for discharge to Phase II area. Do NOT discharge from procedure sedation or Phase 1 until post- sedation evaluation note is complete by procedure /sedation MD Sedation Discharge Instructions to be given to the patient at discharge to home.
--- NOTE | 2021-08-21 21:10 | Cardiac Catheterization ---
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 Cardiac Status Clinical evaluation leading to the procedure CAD Presenation: Non STEMI Anginal Classification: CCS IV Heart Failure: No Cardiogenic Shock within 24 Hours: No Cardiac Arrest within 24 Hours: No Imaging Studies Past 6 Months: Yes Stress Studies Past 6 Months: No Diagnostic Physicians Name: Sushil Garcia MD Closure Device Percutaneous Entry Location: Radial Closure Device: Radial Band Recommendations: Medical Therapy and/or Counseling Intraprocedure Events Significant Disection: No Perforation: No Cardiac Cath Procedure Full Procedure Date August 21, 2021 Pre-Procedure Diagnosis Pre-Procedure Diagnosis: Non STEMI AUC Score AUC Score: 8 Post-Procedure Diagnosis Post-Procedure Diagnosis: Mild CAD and Elevated Intracardiac Pressures Procedure(s) Performed Procedure(s) Performed: Coronary Angiography, Left Heart Cath, Right Heart Cath and Ultrasound Guided Vascular Access Fire Control Technician Sushil Garcia MD Seed Collector(s) Jameson Estimated Blood Loss Estimated Blood Loss: 10 Medication(s) Medication(s): Fentanyl, Lidocaine 1%, Nicardipine, Nitroglycerin and Versed Summary of Findings Indication: NSTEMI, acute heart failure Access: 6Fr right radial artery, 6Fr right antecubital vein under ultrasound guidance Catheters: 6 Fr [place], [place], pigtail Findings: LM -normal caliber, no significant disease LAD -large caliber vessel, wraps around apex. Proximal to mid luminal irregularities. 20% ostial disease and medium D1. Circumflex -large caliber, no significant disease in AV groove circumflex. 20 to 30% proximal disease in large OM 2 RCA -dominant, medium caliber, small distal vessel with luminal irregularities. RA 4 PA 31/20 (24) with pigtail catheter placed into PA Unable to navigate [place] catheter into PA LVEDP -21 Arterial Closure: TR band Summary: 1. Mild nonobstructive coronary artery disease -30% proximal large OM2 2. Normal LV function. LVEF 65% without wall motion abnormalities. 1+ MR 3. Elevated left-sided filling pressures 4. Normal pulmonary artery pressures 5. Normal right-sided filling pressures Recommendations: Continue diuresis. Further evaluate mitral valve prolapse/flail with JANEEN Continued ASCVD risk factor modification Hemodynamics Rest Ao:: 114/66/92 Final Ao: 110/67/87 LV: 108/21 Recommendations Recommendations: Medical Therapy and/or Counseling Specimens Specimens: None Radiation Exposure (mGy) 765 Contrast (mls) 80 mL Optiray Anesthesia Moderate 8481-2690 Procedural Complication(s) None Disposition PCU I attest to the content of the Intraoperative Record and any orders documented therein. Any exceptions are noted below. [facility] Card Cath Procedure Codes Cardiac Catheterization Procedure 1: Cardiovascular Cath Procedures: 26708 Coronaries & LHC (+/-LV) & RHC Therapeutic Services & Ancillary Proc Procedure 1: Cardiovascular Tx and Anc Procedures: 08756 Ultrasonic Guidance Vascular Access Moderate Sedation Procedure 1: Sedation/Anesthesia: 47503 Mod Sedation by the same physician;Init15 Min Child Age 5 & Up Procedure 2: Sedation/Anesthesia: 47516 Mod Sedation by the same physician; Ea [id number] Minutes PG Care Time/CCT Total # of Minutes Spent Total Time Spent with Patient: Total time spent is greater than 50% in coordination of care (as documented) at patient's floor/unit and/or counseling patient:
--- NOTE | 2021-08-21 21:22 | Billing Data ---
Date of Service August 21, 2021 Coding Level of Care Code 00352 Initial Inpt Care Lvl 3
[2021-08-22] MEDS ORDERED: BENZOCAINE/TETRACAIN/BUTAM 50 APPLN/5 GM CAN EXT ONE (07:07)
--- NOTE | 2021-08-22 07:29 | Anesthesiology Consultation ---
Date of Service August 22, 2021 Assessment & Plan (1) Encounter for pre-operative examination: Chart Review Chart Review: Acceptable Risk for Surgery History Surgery Operation Date: 08/21/21 15:30 Proposed Procedures p Cardiac Cath Procedure - Rashaun Garcia MD Operation Date: 08/22/21 07:30 Proposed Procedures p Transesophageal Echo w/Anesthesia - Rashaun Garcia MD Height/Weight Height: 4 ft 9 in Weight: 72.5 kg Allergies Allergy/AdvReac Type Severity Reaction Status Date / Time No Known Allergies Allergy Verified 08/21/21 02:16 Medications Home Medications Medication Instructions Recorded Confirmed Last Taken furosemide 40 mg tablet 40 mg PO DAILY PRN 08/21/21 08/21/21 Unknown multivitamin 1 tab PO DAILY 08/21/21 08/21/21 08/20/21 tramadol 50 mg tablet 50 mg PO DIRECTED PRN 08/21/21 08/21/21 Unknown Active Medications Generic Name Dose Route Start Last Admin Trade Name Freq PRN Reason Stop Dose Admin Aspirin 81 mg 08/21/21 09:00 08/21/21 09:05 Aspirin 81 Mg Ectab PO 09/20/21 08:59 81 mg QAM JOSH Administration Furosemide 20 mg 08/21/21 11:00 08/21/21 20:29 Furosemide Inj 20 Mg/2 Ml Vial IV 09/20/21 10:59 20 mg BID JOSH Administration Potassium Chloride 20 meq 08/21/21 09:00 08/21/21 20:29 Potassium Chloride Crtab 20 Meq Tabcr PO 09/20/21 08:59 20 meq BID JOSH Administration Tramadol HCl 50 mg 08/21/21 07:41 08/21/21 20:05 Tramadol Hcl 50 Mg Tablet PO 09/20/21 07:40 50 mg Q6H PRN Administration Pain Past Medical History Medical History (Updated 08/22/21 @ 07:29 by Asaf Bran MD) Patient denies medical problems episode tachy, dyspneic, hypoxic Past Surgical History Surgical History (Updated 08/22/21 @ 07:26 by Asaf Bran MD) Hx of percutaneous left heart catheterization Social History Smoking Status: Unknown if ever smoked Hx Substance Use: No substance use type: does not use Physical Exam Vital Signs Last Vital Signs Temp 36.6 C 08/22/21 05:02 Pulse 101 H 08/22/21 05:02 Resp 18 02/17/22 05:02 BP 112/76 08/22/21 05:02 Pulse Ox 92 08/22/21 05:02 Testing Laboratory Results 08/21/21 02:40 08/21/21 02:40 APTT 71.2 Seconds (21.0-31.0) H* 08/21/21 14:50 Urine Color Yellow 08/21/21 03:30 Urine Appearance Clear (Clear) 08/21/21 03:30 Urine pH 5.0 (4.5-7.5) 08/21/21 03:30 Ur Specific Lewis 1.006 (1.000-1.030) 08/21/21 03:30 Urine Protein Negative (Negative) 08/21/21 03:30 Urine Glucose (UA) Negative (Negative) 08/21/21 03:30 Urine Ketones Negative (Negative) 08/21/21 03:30 Urine Nitrite Negative (Negative) 08/21/21 03:30 Ur Leukocyte Esterase Trace (Negative) H 08/21/21 03:30 Urine WBC (Auto) 1-5 /hpf (0-5) 08/21/21 03:30 Urine RBC (Auto) 0-4 /hpf (0-4) 08/21/21 03:30 U Hyaline Cast (Auto) 1-5 /lpf (0-5) 08/21/21 03:30 U Epithel Cells (Auto) 0-5 /lpf (0-5) 08/21/21 03:30 Urine Bacteria (Auto) Negative (Negative) 08/21/21 03:30 Echocardiogram Date: 08/21/21 EF: 65-70% LV Function: normal Valvular Disease: + MR (Mod - with prolapsing leaflet)
[2021-08-22 07:54] LABS: Estimated Average Glucose 105 mg/dl; Hemoglobin A1C 5.3 % (4.5-5.6)
[2021-08-22] MEDS ORDERED: PROPOFOL IV EMULSION 10 MG/ML 20 ML VIAL IV ONE (08:25)
[2021-08-22] MEDS ORDERED: LIDOCAINE 2% MPF LOCAL 5 ML VIAL INFIL ONE (08:25)
[2021-08-22] MEDS: FUROSEMIDE INJ 20 MG/2 ML VIAL IV SCH ×2 (09:34→21:30)
[2021-08-22] MEDS: traMADol HCL 50 MG TABLET PO PRN ×2 (09:34→17:59)
[2021-08-22] MEDS: ASPIRIN 81 MG ECTAB PO SCH (09:35)
[2021-08-22] MEDS: POTASSIUM CHLORIDE CRTAB 20 MEQ TABCR PO SCH ×2 (09:35→21:30)
[2021-08-22 09:59] LABS: BUN Creatinine Ratio 30.3 (10-20); Calcium 8.7 mg/dl (8.5-10.1); Creatinine Clr Calc Pharmacy 42.2 ml/min; Est GFR (African American) 71.4 ml/min; Est GFR (Non-African American) 61.6 ml/min; Potassium 4.2 mmol/L (3.5-5.1)
--- NOTE | 2021-08-22 10:51 | Cardiology Progress Note ---
Date of Service August 22, 2021 Assessment & Plan (1) Mitral regurgitation: Plan: 2. 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 Acute heart failure With acute severe MR and heart failure recommend cardiac surgery evaluation. Discussed with patient and will plan to transfer to [facility] directly. Spoke with Dr. Contreras who accepted patient. Continue current diuretics while awaiting bed. Admission and Anticipated Discharge Date Admission Date: August 21, 2021 Subjective No chest pain. Breathing more comfortably. JANEEN this morning - Hyperdynamic LV, flail posterior leaflet (P2 segment) with severe eccentric MR. Review of Systems Review of Systems: All systems reviewed & are unremarkable except as noted in HPI & below Physical Exam Physical Exam: General: Comfortable HEENT: Sclerae anicteric, Mask in place Lungs: Clear to auscultation anteriorly Cardiac: Regular rate and rhythm, 3/6 systolic murmur at apex. Vascular: 2+ radial Abdomen: Soft, nontender Extremities: Well perfused, no peripheral edema Neuro: Nonfocal Psych: Alert orient x3, normal affect and mood Results & Data ([facility]) Vital Signs (Past 12 Hours) Vital Signs Temp Pulse Pulse Resp BP Pulse Ox 08/22/21 08:30 97 H 20 127/74 96 08/22/21 08:17 95 H 20 127/62 93 08/22/21 07:00 106 H 20 116/76 96 08/22/21 05:02 97.9 F 101 H 18 112/76 92 08/22/21 00:20 97.9 F 105 H 18 110/70 93 PG Care Time/CCT Total # of Minutes Spent Total Time Spent with Patient: Total time spent is greater than 50% in coordination of care (as documented) at patient's floor/unit and/or counseling patient: Coding Level of Care Code 99729 Subseq Obs Care Lvl 3 Diagnoses Mitral regurgitation I34.0
--- NOTE | 2021-08-22 12:42 | Medical Student Progress Note ---
Date of Service August 22, 2021 Assessment & Plan (1) Congestive heart failure: Plan: This 80-year-old woman with a history of back pain s/p surgery, headache, and skin cancer s/p surgery (2019) presented with sudden-onset dyspnea, chest tightness, hemoptysis, and palpitations and was found to have acute heart failure due to flail mitral valve. Sudden-onset dyspnea, chest tightness, hemoptysis, and palpitations: - Differential diagnosis includes acute decompensated heart failure, acute mitral regurgitation, ACS. - Acute decompensated heart failure * To patient's knowledge, she has no underlying existing heart failure. * Acute onset likely due to acute mitral regurgitation following sudden-onset mitral valve prolapse. * Mildly elevated BNP of 175. - Acute mitral regurgitation likely due to chordae tendinae rupture. * Per cardiology progress note, JANEEN shows "hyperdynamic LV, flail posterior leaflet (P2 segment) with severe eccentric MR," likely from chordae rupture. - Acute coronary syndrome unlikely. Cardiac cath showed mild CAD (nonobstructive 30% lesion in OM2) and preserved EF. - Management: * Lasix 40 mg BID * Trend BMP * Supplemental oxygen * Morphine PRN * Nitrates PRN Mitral regurgitation, severe: - New onset - Per JANEEN, severe mitral regurgitation due to flail mitral valve, hyperdynamic LV. - Presuming acute etiology (given acute symptomatic presentation), the most likely explanation would be a rupture of chordae tendinae causing leaflet prolapse. However, it is also plausible mitral valve prolapse is [id number] in nature. - Cardiology recommends surgical management and is coordinating transfer to [facility]. - Management: * Transfer to [facility] for surgical management. Elevated troponin, resolved: - 0.19 at presentation, peaked at 0.48 - Likely due to demand ischemia considering cardiac cath results as above. Hypokalemia: - 3.3 at presentation - Electrolytes repleted - Management: * Trend BMP FEN: Heart-healthy diet Code status: DNR/DNI per discussion with patient on admission DVT ppx: SCDs Dispo: PCU telemetry for close hemodynamic monitoring Heart failure chronicity: acute Heart failure type: unspecified Qualified Code(s): I50.9 - Heart failure, unspecified Plan: I personally examined the patient and verified all del rosario points of history and exam, discussed case, and agree with decision making with Z Colon MS2 feeling ok. discussed dx in depth w pt and family - answered all questions to the best of my ability. vitals noted nad breathing unlabored on 2L O2 no focal neuro deficits acute diastolic CHF - hx and w/u most c/w acute valvular dysfunction. diurese, supportive care. tx to tertiary for definitive care of valve once bed available. currently stable under current care otherwise as above Admission and Anticipated Discharge Date Admission Date: August 21, 2021 Subjective Patient reports no chest pain, dyspnea, nor other new symptoms. Review of Systems Constitutional: as per Subjective / HPI Physical Exam Physical Exam: Constitutional: no acute distress CV: tachycardic, regular rhythm, grade 3/6 systolic ejection murmur best appreciated at cardiac apex Resp: no increased work of breathing, mild wheezing on exhalation noted throughout lung fritz L>R, no inspiratory crackles GI: not examined MSK: no gross deformities Skin: warm, dry, no rash Neuro: alert, oriented, grossly moves all extremities Results & Data ([facility]) Vital Signs (Past 12 Hours) Vital Signs Temp Pulse Pulse Pulse Resp BP BP 08/22/21 11:23 36.4 C L 08/22/21 10:47 37.0 C 08/22/21 10:15 101 H 25 H 132/73 08/22/21 08:47 96 H 25 H 123/65 08/22/21 08:30 97 H 20 127/74 08/22/21 08:17 95 H 20 127/62 08/22/21 07:00 106 H 20 116/76 08/22/21 05:02 36.6 C 101 H 18 112/76 Pulse Ox 08/22/21 11:23 08/22/21 10:47 08/22/21 10:15 91 08/22/21 08:47 94 08/22/21 08:30 96 08/22/21 08:17 93 08/22/21 07:00 96 08/22/21 05:02 92
[2021-08-22] MEDS: ACETAMINOPHEN 325 MG TAB PO PRN (13:03)
--- NOTE | 2021-08-22 13:56 | Electrocardiogram Report ---
Test Reason : Blood Pressure : / mmHG Vent. Rate : 096 BPM Atrial Rate : 096 BPM P-R Int : 150 ms QRS Dur : 088 ms QT Int : 382 ms P-R-T Axes : 055 -13 012 degrees QTc Int : 482 ms Normal sinus rhythm Poor R wave progression, consider anterior SC vs. lead placement vs. LVH Abnormal ECG When compared with ECG of 21-AUG-2021 02:03, Premature atrial complexes are no longer Present Confirmed by Manjeet Padilla ([id number]) on 08/22/2021 1:56:06 PM Referred By: REFERRED SELF Confirmed By:Manjeet Padilla
--- NOTE | 2021-08-22 14:21 | Electrocardiogram Report ---
Test Reason : Blood Pressure : / mmHG Vent. Rate : 099 BPM Atrial Rate : 099 BPM P-R Int : 152 ms QRS Dur : 110 ms QT Int : 378 ms P-R-T Axes : 025 050 004 degrees QTc Int : 485 ms Normal sinus rhythm Right bundle branch block Abnormal ECG When compared with ECG of 21-AUG-2021 12:15, Right bundle branch block is now Present Confirmed by Manjeet Padilla ([id number]) on 08/22/2021 2:21:16 PM Referred By: REFERRED SELF Confirmed By:Manjeet Padilla
--- NOTE | 2021-08-22 19:22 | Billing Data ---
Date of Service August 22, 2021 Coding Level of Care Code 05743 Subseq Hosp Care Lvl 3
--- NOTE | 2021-08-22 22:29 | XCELERA ---
[id number]
[2021-08-23 06:32] LABS: BUN Creatinine Ratio 34.9 (10-20); Calcium 8.6 mg/dl (8.5-10.1); Creatinine Clr Calc Pharmacy 43.7 ml/min; Est GFR (African American) 74.5 ml/min; Est GFR (Non-African American) 64.3 ml/min; Potassium 4.2 mmol/L (3.5-5.1)
[2021-08-23] MEDS: ASPIRIN 81 MG ECTAB PO SCH (08:23)
[2021-08-23] MEDS: POTASSIUM CHLORIDE CRTAB 20 MEQ TABCR PO SCH (08:24)
[2021-08-23] MEDS: FUROSEMIDE INJ 20 MG/2 ML VIAL IV SCH (08:28)
[2021-08-23] MEDS: traMADol HCL 50 MG TABLET PO PRN (09:52)
--- NOTE | 2021-08-23 10:52 | Anesthesiology Progress Note ---
Date of Service August 23, 2021 Anesthesia Post Procedure Vital Signs Vital Signs: Temp Pulse Pulse Resp BP BP BP 08/23/21 09:00 37.3 C 96 H 22 110/59 L 08/23/21 00:00 36.8 C 94 H 20 98/61 L 08/22/21 20:00 37.4 C 100 H 16 128/74 08/22/21 16:00 22 116/62 08/22/21 15:41 36.6 C 08/22/21 14:00 109 H 23 08/22/21 12:00 108 H 26 H 118/82 08/22/21 11:23 36.4 C L 08/22/21 11:17 100 H 20 147/63 H Pulse Ox 08/23/21 09:00 92 08/23/21 00:00 92 08/22/21 20:00 91 08/22/21 16:00 93 08/22/21 15:41 08/22/21 14:00 92 08/22/21 12:00 92 08/22/21 11:23 08/22/21 11:17 92 Pain Intensity Chest: Pain Intensity: 0 Back: Pain Intensity: 8 Transfer of Care Handoff Completed per policy Notes Mental Status: alert / awake / arousable Patient Amnestic to Procedure: Yes Nausea / Vomiting: adequately controlled Pain: adequately controlled Airway Patency, RR, SpO2: stable & adequate BP & HR: stable & adequate Hydration State: stable & adequate Anesthetic Complications: no major complications apparent
--- NOTE | 2021-08-23 12:06 | Discharge Summary ---
Date of Service August 23, 2021 Admission HPI Per Admitting Provider 80yo female with a history of headache and back pain presents with sudden-onset SOB, cough productive of blood-tinged sputum, and chest tightness. 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 Patient waited 10- 15 minutes for symptoms to resolve, but when her symptoms started to gradually worsened, she called a family friend (who is a physician) who recommended calling 911. Patient notes about 40 minutes elapsed between symptom onset and EMS arrival. Patient notes her symptoms continued to worsen until EMS gave her a nebulizer and supplemental oxygen. Upon EMS evaluation, patient was tachycardic, tachypneic, and hypoxic in the 80s, which improved on 4L NC. Upon arrival to the ED, patient was hypoxic to 87, tachycardic to 125, and was afebrile. Respiratory rate on arrival is listed as 20 but patient has had tachypnea reaching a RR of 30 intermittently while here. Patient denies experiencing similar symptoms before. Does endorse a lifetime history of easy bruising, though she denies a history of uncontrolled nosebleeds, hematochezia, or melena. Also endorses a history of headache and frequent NSAID use ("I always have a headache, it is constant every day, I take a lot of excedrin and aleve, usually multiple times a day"). Patient denies fever, chills, fatigue, congestion, sore throat, chest pain, palpitations, abdominal pain, nausea, vomiting, constipation, diarrhea, pain with urination, change in urinary frequency, hematuria, new numbness, tingling, weakness, night sweats, rash, bone pain, or unintentional weight loss. Patient is a never- smoker. Patient denies recent travel, recent immobility, or history of TB. Patient denies a known family history of DVT/PE, hemoptysis, aneurysms, uncontrolled nosebleeds, or GI bleed. Other than OTC headache medicine, patient's home meds are limited to tramadol and lasix; tramadol as needed for back pain (s/p back surgery five years ago), and lasix as needed for "fluid retention" though she denies having been diagnosed with CHF; patient reports she only takes lasix about once a week. Patient is unaware if she's been diagnosed with a heart murmur in the past. Admission Exam Per Admitting Provider Constitutional: well-appearing, no acute distress HEENT: NCAT, no blood appreciated in nares or oropharynx, MMM, no oropharyngeal ulcers or telangiectasias CV: tachycardic, regular rhythm, grade 5/6 systolic ejection murmur appreciated, extremities well-perfused, no LE edema Resp: CTABL, no wheezes/rales/rhonchi appreciated, no increased work of b reathing GI: soft, nondistended, nontender, BS normoactive MSK: no gross deformities appreciated Skin: warm, dry, no rash appreciated Neuro: alert, oriented, no focal neurologic deficit appreciated Principal Diagnosis Acute heart failure due to mitral valve prolapse Discharge Exam Constitutional: no acute distress CV: tachycardic, regular rhythm, grade 3/6 systolic ejection murmur best appreciated at cardiac apex Resp: CTAB, unlabored respirations, no wheezes or crackles MSK: no gross deformities Skin: warm, dry, no rash Neuro: alert, oriented, grossly moves all extremities Discharge Data Allergies Allergy/AdvReac Type Severity Reaction Status Date / Time No Known Allergies Allergy Verified 08/21/21 02:16 Consultations 08/21/21 03:53 ED Decision to Admit Stat 08/21/21 10:55 Consult Cardiology Routine 08/22/21 17:37 Burn CD for patient Routine Procedures Performed Operation Date: 08/21/21 15:30 Actual Procedures p Cineradiography w/Routine Exam - Rashaun Garcia MD p Cath, Right and Left Heart - Rashaun Garcia MD s Ultrasound Vascular Access - Rashaun Garcia MD Operation Date: 08/22/21 07:30 Actual Procedures p Echo Transesophageal - Rashaun Garcia MD s Echo Color Flow - Rashaun Garcia MD s Echo Doppler Complete - Rashaun Garcia MD Ordered Studies 08/21/21 06:06 CT angio chest PE protocol Stat 08/21/21 16:07 CL Cath Imgs for PACS use only Urgent Hospital Course (1) Mitral regurgitation: This 80-year-old woman with a history of back pain s/p surgery, headache, and skin cancer s/p surgery (2019) presented with sudden-onset dyspnea, chest tightness, hemoptysis, and palpitations and was found to have acute heart failure due to flail mitral valve. Sudden-onset dyspnea, chest tightness, hemoptysis, and palpitations: - Differential diagnosis includes acute decompensated heart failure, acute mitral regurgitation, ACS. - Acute decompensated heart failure * To patient's knowledge, she has no underlying existing heart failure. * Acute onset likely due to acute mitral regurgitation following sudden-onset mitral valve prolapse. 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 * Per cardiology progress note, JANEEN shows "hyperdynamic LV, flail posterior leaflet (P2 segment) with severe eccentric MR," likely from chordae rupture.- Acute coronary syndrome unlikely. Cardiac cath showed mild CAD (nonobstructive 30% lesion in OM2) and preserved EF. - Management: * Lasix 40 mg BID, euvolemic on exam * Supplemental oxygen, currently 2L NC * Morphine PRN * Nitrates PRN Mitral regurgitation, severe: - New onset - Per JANEEN, severe mitral regurgitation due to flail mitral valve, hyperdynamic LV. EF 60-65% - Presuming acute etiology (given acute symptomatic presentation), the most likely explanation would be a rupture of chordae tendinae causing leaflet prolapse. However, it is also plausible mitral valve prolapse is [id number] in nature. - Cardiology recommends surgical management and is coordinating transfer to [facility]. - Management: * Transfer to [facility] for valve repair. Pt discharged home on 08/23 in stable condition and will wait until bed at [facility] available. Elevated troponin, resolved: - 0.19 at presentation, peaked at 0.48 - Likely due to demand ischemia considering cardiac cath results as above. Hypokalemia: - 3.3 at presentation, 4.1 at time of discharge (2) Congestive heart failure: (3) Elevated troponin: Total Time Total Time Spent Total Time Spent (In Minutes): <30 Discharge Plan Discharge Items Patient Disposition: Transfer Acute Care Hospital Reason For Visit: HYPOXEMIA, NSTEMI, HEMOPTYSIS Discharge Diagnosis: Heart failure due to mitral valve prolapse Activity: Per Instructions section Non-emergency contact: Primary Care Provider and Business Initiatives Manager Call non-emergency contact if: you have any medication questions, your symptoms worsen, your pain is worsening and you have a fever Follow-up/Referrals: Emilee Washington, DO [Primary Care Provider] - Diet: Low Sodium (2gm) Addtl Attending Provider Instructions: FOR PATIENT You were admitted to the hospital for shortness of breath, chest pain, coughing up blood. You were found to have a valvular dysfunction of your mitral valve, leading to blood backing up in the heart and lungs. This will require surgical management at [facility], which is being set up for next week -in the meantime, we will have you take furosemide (lasix) 40mg once a day. we would ask that you get labwork (BMP - basic metabolic panel) to make sure you're not getting too dried out - have this done via your PCP early next week. -until the valve is repaired, we have to have you look at things as though you are a congestive heart failure patient. this will be temporary. however, most of the time when i admit people to the hospital with fluid backed up into their lungs, it is because they accidentally ate too much sodium, which led to their kidneys retaining fluid - which then led to the fluid backing up into their lungs. (to be clear, this episode happened because the valve cord broke -- where sodium comes into play is keeping you out of the hospital between now and getting the valve fixed) -when your kidneys see a little sodium then hold onto a little water. when they see a lot of sodium, they hold onto a LOT of water. if you stay less than 2000mg of sodium in a day (and ideally less than 1500mg) it should really help protect you from ending up back in the hospital with fluid retention/shortness of breath from pulmonary edema. as we discussed, most people DO NOT get into trouble because of adding salt to their foods - for almost everyone, it is the sodium that is added to foods as a preservative and flavoring agent - so read labels. again this should be short lived - i don't expect this to be your "forever normal" - just till the valve is repaired and you recover. -below are the "CHF discharge instructions" we created -- they're probably a bit much for what you need, but i bet that some of it will be useful information for you while you're in the "bangura zone" of now until the valve gets fixed Congestive Heart Failure: Discharge Instructions Congestive Heart Failure essentially means your heart is able to have a "traffic jam" of fluid that backs up into your lungs. Fluid in lungs then blocks up breathing space making you feel short of breath. In the hospital, our job is to get the fluid off so that you are able to breathe better, and then get you back on track with medication and lifestyle adjustments to keep the traffic jam from happening again. Salt (Sodium) The vast majority of people admitted to the hospital with fluid back up into the lungs get there because of too much salt in their diet. The way our kidneys work: when you take a small amount of sodium, your kidneys hold onto a small amount of water. When you take a large amount of sodium, your kidneys hold onto a large amount of water. When this happens, your blood vessels get flooded, your heart gets overfilled, and the fluid backs up into your lungs. Most people know to avoid the salt shaker, but sodium is in almost anything prepackaged/prepared, as a preservative or as a flavoring agent. Most of the people we take care of who are here with congestive heart failure caused by too much sodium do not use a salt shaker at all. Get into the habit of looking at food labels, so you can see how much sodium is in the foods you eat. The most important number to look at is how much sodium is in each serving. But also notice the size of a serving. [employer] will frequently make a serving size so tiny that it does not look like there is much sodium per serving, but a normal person might eat 3 or 4 servings of the food and take in a lot more sodium than they realized. Keep a "budget" of how much sodium you take in in each day. Most people stay out of trouble and stay out of the hospital as long as they stay "under budget". The majority of congestive heart failure patients do well if they take less than 2000 mg of sodium a day. Because our kidneys retain water based on how much sodium they are seeing in any given moment, it is also important to stay at less than about 500 mg in any given meal. This is because even if you stayed at less than 2000 mg of sodium, but ate it all at once, your kidneys would retain fluid at a rate as though you are taking in much more sodium than you actually are. Occasionally your doctor may specifically recommend restricting even further (such as less than 1500mg per day) so if you have been told to be even stricter with sodium, please follow that advice. -Following How You Are Doing (Wet Versus Dry) Because managing congestive heart failure is an ongoing process, it is very i mportant to learn how to follow your signs and symptoms and track how you are doing at home. This will allow you to catch problems before they become a big deal. In general, as your health care team, we look at managing congestive heart failure chronically as a balance of being "wet" (flooded with fluid) versus being "dry" (dehydrated from treatment). Wet - signs of fluid retention that would warrant further evaluation: Check your weight daily. If your weight goes up by more than 2 pounds in 1 day, it is almost certainly fluid related. This should warrant further thought, and/or a call to your doctor Follow your breathingmost of the time, early on when fluid backs up into your lungs, you will first start to notice shortness of breath when walking, or when lying flat. If you notice either of these, this should warrant further thought, and/or a call to your doctor If you notice both an increase in weight and worsening breathing, that definitely warrants getting seen as soon as possible "Dry"while the goal of managing the disease is to keep you from getting "wet, the medications can sometimes cause a degree of dehydration. Most people with congestive heart failure need frequent lab work (basic metabolic panel). Generally when there has been a change in diuretic dosing (a change in the water pill) or any other major changes, lab work should be follow ed closely and more frequently afterwards. This is because lab work will frequently show early signs of dehydration before you start to feel bad. Frequent symptoms of being dehydrated include: feeling weak and lightheaded, having lower blood pressures, making less urine than usual, or having a very dry mouth. If you notice any of these signs/symptoms, and you are not due for lab work, it would be quite reasonable to call your doctor to see if lab work or a visit could be arranged. Heart Failure Management Checklist: Limit Salt (Sodium) Intake to 2000mg (2g) per day and 500mg (0.5g) per meal Check weight daily (in same clothes, without shoes) every morning Use the provided chart to enter your weight and salt intake for the day Are you too wet? If you gained 2lb or more - make sure to take your water pill If your breathing is not good (you are more short of breath than usual) call your doctor regardless of weight change If you gained 2lb or more and you are short of breath, see your doctor or come to the emergency room Are you too dry? If you feel weak or lightheaded, have lower blood pressures, make less urine than usual, or have a very dry mouth. Call your doctor FOR PROVIDER This 80-year-old woman with a history of back pain s/p surgery, headache, and skin cancer s/p surgery (2019) presented with sudden-onset dyspnea, chest tightness, hemoptysis, and palpitations and was found to have acute heart failure due to flail mitral valve. Sudden-onset dyspnea, chest tightness, hemoptysis, and palpitations: - Differential diagnosis includes acute decompensated heart failure, acute mitral regurgitation, ACS. - Acute decompensated heart failure * To patient's knowledge, she has no underlying existing heart failure. * Acute onset likely due to acute mitral regurgitation following sudden-onset mitral valve prolapse. 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 * Per cardiology progress note, JANEEN shows "hyperdynamic LV, flail posterior leaflet (P2 segment) with severe eccentric MR," likely from chordae rupture.- Acute coronary syndrome unlikely. Cardiac cath showed mild CAD (nonobstructive 30% lesion in OM2) and preserved EF. - Management: * Lasix 40 mg BID, currently euvolemic on exam * Continue O2 supplementation, 2L NC * Trend BMP * Supplemental oxygen * Morphine PRN * Nitrates PRN Mitral regurgitation, severe: - New onset - Per JANEEN, severe mitral regurgitation due to flail mitral valve, hyperdynamic LV. - Presuming acute etiology (given acute symptomatic presentation), the most likely explanation would be a rupture of chordae tendinae causing leaflet prolapse. However, it is also plausible mitral valve prolapse is [id number] in nature. - Cardiology recommends surgical management and is coordinating transfer to [facility]. - Management: * Transfer to [facility] on 08/23 for valve repair Elevated troponin, resolved: - 0.19 at presentation, peaked at 0.48 - Likely due to demand ischemia considering cardiac cath results as above. Hypokalemia: - 3.3 at presentation, 4.2 at time of discharge s/p repletion Pending Studies at Discharge: Yes Studies:: 48 hour blood cultures Stand-Alone Forms: [facility] Skilled Items Patient informed of condition?: No DNR: Yes Discharge Level of Care: Other Communicable Disease: No Discharge Prognosis: Stable Lines: None Urinary Catheter: No Medications and DC Order Prescriptions: Continued multivitamin Tablet 1 tab PO DAILY RF: 0 furosemide 40 mg tablet 40 mg PO DAILY PRN (Reason: Edema) RF: 0 tramadol 50 mg Tablet 50 mg PO DIRECTED PRN (Reason: Pain) RF: 0 Discharge Orders: Discharge Order (Routine); Ordered 08/23/21 Ordered By: Dacia Ferguson Admission Data Admit Date/Time: 08/21/21 05:02 Attending Provider: Javan Purcell Admit Provider: Caio Ugarte Primary Care Provider: Emilee Washington Other Providers: Masoud Lopez ; Jignesh Wilson Supervising Physician Co-Signing Physician Notes I personally examined the patient and verified all del rosario points of history and exam, discussed case, and agree with decision making with Dr Ferguson feeling ok. d/w cardiology - no beds at [facility]. agree with assessment of stability to pursue as outpt. pt would like to do this instead of remaining inpatient. discussed extensively w pt and dtr self care as a CHF patient currently vitals noted nad breathing unlabored on 2L O2 no focal neuro deficits acute diastolic CHF - hx and w/u most c/w acute valvular dysfunction. home on O2 for now, lasix, Na restriction. for outpt [facility] follow up next week otherwise as above Resident Activity Tracking Resident Involvement: Resident Care Provided Care Provided: Adult Hospital Medicine
--- NOTE | 2021-08-23 12:12 | Cardiology Progress Note ---
Date of Service August 23, 2021 Assessment & Plan (1) Mitral regurgitation: Plan: 2. 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 Acute heart failure Spoke with [facility] cardiac surgery, Dr. Field this morning. No bed availability currently at [place] and Dr. Field unavailable next week. Discussed options. Feel patient is stable enough to pursue surgery as an outpatient. Ok with discharge today on 40mg PO lasix. Follow-up with me sometime next week with carotid ultrasound. Follow-up with Dr. Field sometime the week of 09/02. Admission and Anticipated Discharge Date Admission Date: August 21, 2021 Subjective Feeling well. Denies shortness of breath or chest pain. Review of Systems Review of Systems: All systems reviewed & are unremarkable except as noted in HPI & below Physical Exam Physical Exam: General: Comfortable HEENT: Sclerae anicteric, Mask in place Lungs: Clear to auscultation anteriorly Cardiac: Regular rate and rhythm, 3/6 systolic murmur left upper sternal border Vascular: 2+ radial Abdomen: Soft, nontender Extremities: Well perfused, no peripheral edema Neuro: Nonfocal Psych: Alert orient x3, normal affect and mood Results & Data ([facility]) Vital Signs (Past 12 Hours) Vital Signs Temp Pulse Resp BP Pulse Ox 08/23/21 09:00 99.1 F 96 H 22 110/59 L 92 PG Care Time/CCT Total # of Minutes Spent Total Time Spent with Patient: Total time spent is greater than 50% in coordination of care (as documented) at patient's floor/unit and/or counseling patient: Coding Level of Care Code 60129 Subseq Hosp Care Lvl 3 Diagnoses Mitral regurgitation I34.0
[2021-08-23] MEDS: ACETAMINOPHEN 325 MG TAB PO PRN (14:24)
--- NOTE | 2021-08-23 18:46 | Billing Data ---
Date of Service August 23, 2021 Coding Level of Care Code D/C DAY MANAGEMENT <30 MINS
== END 2021-08-23 16:07 | disposition home or self-care (01) | DRG 286 ==
LOC: ED 01:55 → SUATTDRO 05:02 → EDINP 05:02